=== PATIENT | male | born 1940 | race Caucasian/White ===

== ENCOUNTER 2018-12-25 13:13 | Inpatient (IN) ==
[2018-12-25 14:12] LABS: Basophils # 0.1 K/mcL (0.0-0.2); Basophils % 0.4 %; Eosinophils # 0.4 K/mcL (0.0-0.6); Eosinophils % 3.4 %; Hematocrit 24.3 % (37.5-50.1); Hemoglobin 7.6 g/dL (12.9-16.9); Immature Granulocytes % 0.4 % (0-4); Lymphocytes # 2.5 K/mcL (0.6-4.6); Lymphocytes % 19.9 %; Mean Corpuscular HGB Conc 31.3 g/dL (31.6-35.5); Mean Corpuscular Hemoglobin 29.8 pg (28.0-33.3); Mean Corpuscular Volume 95.3 fL (83.0-100.0); Mean Platelet Volume 10.9 fL (9.4-12.4); Monocytes # 0.9 K/mcL (0.0-1.3); Monocytes % 7.1 %; Neutrophils # 8.8 K/mcL (1.6-8.9); Platelet Count 180 K/mcL (140-400); Red Blood Count 2.55 M/mcL (4.19-5.50); Red Cell Distribution Width 14.8 % (11.5-14.5); Segmented Neutrophils % 68.8 %; White Blood Count 12.7 K/mcL (4.3-11.1)
[2018-12-25 14:34] LABS: Alanine Aminotransferase 11 Units/L (7-52); Albumin 3.8 g/dL (3.5-5.7); Albumin/Globulin Ratio 1.3 (1.1-2.2); Alkaline Phosphatase 62 Units/L (34-104); Aspartate Amino Transferase 15 Units/L (13-39); BUN/Creatinine Ratio 18 (6-26); Bilirubin,Total 0.7 mg/dL (0.3-1.0); Blood Urea Nitrogen 64 mg/dL (8-23); Calcium 9.3 mg/dL (8.6-10.3); Carbon Dioxide 22 mEq/L (23-29); Chloride 109 mEq/L (98-107); Globulin 2.9 g/dL (2.4-3.5); Glucose 110 mg/dL (70-105); Osmolality,Calculated 299 (280-300); Potassium 4.7 mEq/L (3.5-5.1); Sodium 135 mEq/L (136-145); Total Protein 6.7 g/dL (6.4-8.9); Troponin I < 0.03 ng/mL (< 0.04); eGFR For African Americans 20 (> 60); eGFR For Non-African Americans 16 (> 60)
[2018-12-25] MEDS ORDERED: Piperacillin/Tazobactam 3.375 GM in Water for inj. (sterile) 20 ML IVP ONE (15:00)
[2018-12-25 15:18] LABS: INR 1.1; Prothrombin Time 12.3 Seconds (9.4-12.1)
[2018-12-25 15:20] LABS: Activated Partial Thrombo Time 30.2 Seconds (26.0-36.0)
[2018-12-25] MEDS ORDERED: 0.9 % Sodium Chloride 1,000 ML IVC ONE ×2 (15:31→18:28)
[2018-12-25 15:43] LABS: Lactate Dehydrogenase 144 Units/L (140-271)
[2018-12-25] MEDS ORDERED: Naloxone 0.4 MG/ML INJ IVP PRN (16:35)
[2018-12-25] MEDS ORDERED: Ondansetron 4 MG/2 ML VIAL IVP PRN (16:35)
[2018-12-25] MEDS ORDERED: *HR* Promethazine 25 MG/ML VIAL IVP ONE (17:16)
[2018-12-25] MEDS ORDERED: cloNIDine HCl 0.1 MG TABLET PO ONE (17:21)
[2018-12-25] MEDS ORDERED: hydrALAZINE 10 MG TABLET PO ONE (17:21)
[2018-12-25] MEDS ORDERED: Dextrose Gel 15 GM/37.5 ML TUBE PO PRN ×2 (17:36)
[2018-12-25] MEDS ORDERED: D5% in Water 1,000 ML IVC PRN (17:36)
[2018-12-25] MEDS ORDERED: *HR* Dextrose 50 % in Water (Syg) 50 ML SYRINGE IVP PRN (17:36)
[2018-12-25] MEDS ORDERED: 0.9 % Sodium Chloride 1,000 ML IVC SCH (19:30)
[2018-12-25] MEDS ORDERED: *HR* Magnesium Sulfate 1 GM/2 ML VIAL ONE (19:47)
[2018-12-25] MEDS: Insulin LISPRO 300 UNITS/3 ML VIAL SQ SCH (20:02)
[2018-12-25] MEDS ORDERED: Dexamethasone 4 MG/ML VIAL ONE (20:12)
[2018-12-25] MEDS ORDERED: *HR* Rocuronium Bromide 50 MG/5 ML VIAL ONE (20:12)
[2018-12-25] MEDS ORDERED: Ondansetron 4 MG/2 ML VIAL ONE (20:12)
[2018-12-25] MEDS ORDERED: *HR* FentaNYL (PF) 100 MCG/2 ML VIAL ONE (20:12)
[2018-12-25] MEDS ORDERED: Lidocaine -MPF 2% 2 ML VIAL ONE (20:12)
[2018-12-25] MEDS ORDERED: *HR* Propofol 200 MG/20 ML VIAL IVP ONE (20:12)
[2018-12-25] MEDS ORDERED: Lidocaine HCL 4 ML Topical Solution (Laryng-O-Jet Kit Sterile Pak) TP ONE (20:17)
[2018-12-25] MEDS ORDERED: 0.9 % Sodium Chloride 250 ML ONE (20:49)
[2018-12-25] MEDS ORDERED: Furosemide 20 MG/2 ML VIAL IVP SCH (21:00)
[2018-12-25] MEDS: Piperacillin/Tazobactam 3.375 GM in 0.9 % Sodium Chloride Mini Bag 100 ML IVPB SCH (23:40)
[2018-12-26] MEDS ORDERED: *HR* Etomidate 40 MG/20 ML VIAL IVP ONE
[2018-12-26] MEDS ORDERED: *HR* HYDROMORPHONE 2 MG/ML VIAL ONE (00:07)
[2018-12-26] MEDS ORDERED: Famotidine 20 MG/2 ML VIAL ONE (00:10)
[2018-12-26] MEDS ORDERED: Acetaminophen IV 1,000 MG/100 ML INFUS..BTL ONE (00:10)
[2018-12-26] MEDS: Piperacillin/Tazobactam 3.375 GM in 0.9 % Sodium Chloride Mini Bag 100 ML IVPB SCH ×3 (00:15→21:08)
[2018-12-26] MEDS: Insulin LISPRO 300 UNITS/3 ML VIAL SQ SCH ×4 (00:15→17:31)
[2018-12-26] MEDS ORDERED: *HR* Promethazine 25 MG/ML VIAL IVP PRN (00:42)
[2018-12-26] MEDS ORDERED: *HR* HYDROmorphone (PF) 1 MG/ML SYRINGE IVP PRN (00:42)
[2018-12-26] MEDS ORDERED: *HR* Labetalol 20 MG/4 ML SYRINGE IVP PRN ×2 (00:42→01:46)
[2018-12-26] MEDS ORDERED: *HR* Magnesium Sulfate 1 GM/2 ML VIAL ONE (00:56)
[2018-12-26] MEDS ORDERED: Dextrose Gel 15 GM/37.5 ML TUBE PO PRN ×2 (01:46)
[2018-12-26] MEDS ORDERED: 0.9 % Sodium Chloride 1,000 ML IVC SCH (01:46)
[2018-12-26] MEDS ORDERED: Naloxone 0.4 MG/ML INJ IVP PRN (01:46)
[2018-12-26] MEDS ORDERED: *HR* Dextrose 50 % in Water (Syg) 50 ML SYRINGE IVP PRN (01:46)
[2018-12-26 04:11] LABS: Basophils % 0.3 %; Eosinophils # 0.1 K/mcL (0.0-0.6); Eosinophils % 1.1 %; Hematocrit 28.5 % (37.5-50.1); Hemoglobin 8.9 g/dL (12.9-16.9); Immature Granulocytes % 0.3 % (0-4); Lymphocytes # 0.9 K/mcL (0.6-4.6); Lymphocytes % 9.1 %; Mean Corpuscular HGB Conc 31.2 g/dL (31.6-35.5); Mean Corpuscular Hemoglobin 30.3 pg (28.0-33.3); Mean Corpuscular Volume 96.9 fL (83.0-100.0); Mean Platelet Volume 10.6 fL (9.4-12.4); Monocytes # 0.6 K/mcL (0.0-1.3); Monocytes % 6.2 %; Neutrophils # 8.2 K/mcL (1.6-8.9); Platelet Count 154 K/mcL (140-400); Red Blood Count 2.94 M/mcL (4.19-5.50); White Blood Count 9.9 K/mcL (4.3-11.1)
[2018-12-26 04:31] LABS: Calcium 8.9 mg/dL (8.6-10.3); Potassium 4.6 mEq/L (3.5-5.1)
[2018-12-26] MEDS: *HR* Heparin 5,000 UNIT/ML VIAL SQ SCH ×2 (06:41→17:31)
[2018-12-26] MEDS: Acetaminophen IV 1,000 MG/100 ML INFUS..BTL IVPB SCH ×3 (06:41→17:30)
[2018-12-26] MEDS: Pantoprazole 40 MG VIAL IVP SCH ×2 (06:42→17:30)
[2018-12-26] MEDS: Furosemide 20 MG/2 ML VIAL IVP SCH ×2 (09:24→16:25)
[2018-12-26] MEDS: *HR* FentaNYL (PF) 100 MCG/2 ML VIAL IVP PRN ×2 (11:16→15:49)
[2018-12-26] MEDS: 0.9 % Sodium Chloride 1,000 ML IVC SCH (12:50)
[2018-12-26] MEDS ORDERED: *HR* Metoprolol 5 MG/5 ML VIAL IVP ONE (16:08)
[2018-12-26] MEDS: *HR* Metoprolol 5 MG/5 ML VIAL IVP SCH (18:16)
[2018-12-26] MEDS ORDERED: NIFEdipine 10 MG CAPSULE PO ONE (22:09)
[2018-12-27] MEDS: Acetaminophen IV 1,000 MG/100 ML INFUS..BTL IVPB SCH ×4 (00:21→17:40)
[2018-12-27] MEDS: *HR* Metoprolol 5 MG/5 ML VIAL IVP SCH ×4 (00:22→17:40)
[2018-12-27] MEDS: Insulin LISPRO 300 UNITS/3 ML VIAL SQ SCH ×4 (00:24→17:24)
[2018-12-27] MEDS: 0.9 % Sodium Chloride 1,000 ML IVC SCH (03:26)
[2018-12-27] MEDS: Pantoprazole 40 MG VIAL IVP SCH ×2 (05:24→17:45)
[2018-12-27 06:45] LABS: Basophils # 0.1 K/mcL (0.0-0.2); Basophils % 0.6 %; Eosinophils # 0.3 K/mcL (0.0-0.6); Eosinophils % 2.9 %; Hematocrit 30.3 % (37.5-50.1); Hemoglobin 9.4 g/dL (12.9-16.9); Immature Granulocytes % 0.3 % (0-4); Lymphocytes # 2.1 K/mcL (0.6-4.6); Lymphocytes % 19.5 %; Mean Corpuscular Hemoglobin 29.8 pg (28.0-33.3); Mean Corpuscular Volume 96.2 fL (83.0-100.0); Mean Platelet Volume 10.6 fL (9.4-12.4); Monocytes # 0.9 K/mcL (0.0-1.3); Monocytes % 8.4 %; Neutrophils # 7.2 K/mcL (1.6-8.9); Platelet Count 213 K/mcL (140-400); Red Blood Count 3.15 M/mcL (4.19-5.50); Red Cell Distribution Width 15.2 % (11.5-14.5); Segmented Neutrophils % 68.3 %; White Blood Count 10.6 K/mcL (4.3-11.1)
[2018-12-27] MEDS: *HR* Heparin 5,000 UNIT/ML VIAL SQ SCH ×2 (06:58→17:45)
[2018-12-27 07:06] LABS: Calcium 9.4 mg/dL (8.6-10.3); Potassium 4.3 mEq/L (3.5-5.1)
[2018-12-27 07:39] LABS: ABG Base Excess -4 mEq/L (-2 to 3); ABG HCO3 22 mEq/L (21-27); ABG Oxygen Saturation 93 % (95-98); ABG PCO2 42 mmHg (35-45); ABG PH 7.33 pH Units (7.32-7.45); ABG PO2 72 mmHg (85-104); ABG TCO2 23 mEq/L (20-26)
[2018-12-27] MEDS: Furosemide 20 MG/2 ML VIAL IVP SCH ×2 (07:58→17:18)
[2018-12-27] MEDS: Piperacillin/Tazobactam 3.375 GM in 0.9 % Sodium Chloride Mini Bag 100 ML IVPB SCH ×2 (08:02→20:36)
[2018-12-27] MEDS: amLODIPine 5 MG TABLET PO SCH (08:35)
[2018-12-27] MEDS: cloNIDine HCl 0.1 MG TABLET PO SCH ×3 (08:35→20:40)
[2018-12-27] MEDS ORDERED: Haloperidol Lactate 5 MG/ML VIAL IVP PRN (12:21)
[2018-12-27 13:34] LABS: Bilirubin,Urine Negative (Negative); Blood,Urine Negative (Negative); Clarity,Urine Clear (Clear); Color,Urine Yellow (Yellow); Glucose,Urine (UA) Normal (Normal); Ketones,Urine Negative (Negative); Leukocyte Esterase,Urine Negative (Negative); Nitrite,Urine Negative (Negative); Protein,Urine 30 mg/dL (Neg-Trace); Specific Gravity,Urine 1.017 (1.010-1.025); Urobilinogen,Urine Normal (Normal)
[2018-12-27 13:36] LABS: Hyaline Casts,Urine None Seen per lpf (None-Few); WBC,Urine 0-3 per hpf (0-3)
[2018-12-27 14:00] LABS: Squamous Epithelial Cell,Urine Few per lpf (None-Few)
[2018-12-27 14:02] LABS: Bacteria,Urine Few per hpf (None-Few); RBC,Urine 0-3 per hpf (0-3)
[2018-12-28] MEDS: Insulin LISPRO 300 UNITS/3 ML VIAL SQ SCH ×4 (00:02→17:50)
[2018-12-28] MEDS: *HR* Metoprolol 5 MG/5 ML VIAL IVP SCH ×2 (00:04→07:33)
[2018-12-28 01:13] LABS: Basophils # 0.1 K/mcL (0.0-0.2); Basophils % 0.6 %; Eosinophils # 0.4 K/mcL (0.0-0.6); Eosinophils % 5.1 %; Hematocrit 27.8 % (37.5-50.1); Hemoglobin 8.6 g/dL (12.9-16.9); Immature Granulocytes % 0.5 % (0-4); Lymphocytes # 2.1 K/mcL (0.6-4.6); Lymphocytes % 25.3 %; Mean Corpuscular HGB Conc 30.9 g/dL (31.6-35.5); Mean Corpuscular Hemoglobin 30.3 pg (28.0-33.3); Mean Corpuscular Volume 97.9 fL (83.0-100.0); Mean Platelet Volume 10.5 fL (9.4-12.4); Monocytes # 0.8 K/mcL (0.0-1.3); Monocytes % 9.1 %; Platelet Count 191 K/mcL (140-400); Red Blood Count 2.84 M/mcL (4.19-5.50); Red Cell Distribution Width 14.9 % (11.5-14.5); Segmented Neutrophils % 59.4 %; White Blood Count 8.4 K/mcL (4.3-11.1)
[2018-12-28 01:31] LABS: Potassium 4.2 mEq/L (3.5-5.1)
[2018-12-28] MEDS: Acetaminophen IV 1,000 MG/100 ML INFUS..BTL IVPB SCH ×3 (01:59→11:54)
[2018-12-28] MEDS: 0.9 % Sodium Chloride 1,000 ML IVC SCH ×2 (02:06→17:07)
[2018-12-28] MEDS: *HR* Heparin 5,000 UNIT/ML VIAL SQ SCH ×2 (07:32→17:50)
[2018-12-28] MEDS: Pantoprazole 40 MG VIAL IVP SCH ×2 (07:34→17:50)
[2018-12-28] MEDS: amLODIPine 5 MG TABLET PO SCH (07:35)
[2018-12-28] MEDS: Furosemide 20 MG/2 ML VIAL IVP SCH (07:35)
[2018-12-28] MEDS: cloNIDine HCl 0.1 MG TABLET PO SCH ×3 (07:35→21:14)
[2018-12-28] MEDS: Piperacillin/Tazobactam 3.375 GM in 0.9 % Sodium Chloride Mini Bag 100 ML IVPB SCH ×2 (07:37→21:20)
[2018-12-28] MEDS: hydrALAZINE 25 MG TABLET PO SCH ×3 (09:05→21:14)
[2018-12-28] MEDS: Ondansetron 4 MG/2 ML VIAL IVP PRN ×2 (09:58→15:59)
[2018-12-29] MEDS: Insulin LISPRO 300 UNITS/3 ML VIAL SQ SCH ×5 (00:04→20:37)
[2018-12-29] MEDS: Pantoprazole 40 MG VIAL IVP SCH (05:15)
[2018-12-29] MEDS: *HR* Heparin 5,000 UNIT/ML VIAL SQ SCH ×2 (05:15→17:22)
[2018-12-29] MEDS ORDERED: D5% in Water 1,000 ML IVC PRN (06:45)
[2018-12-29] MEDS: amLODIPine 5 MG TABLET PO SCH (08:12)
[2018-12-29] MEDS: hydrALAZINE 25 MG TABLET PO SCH ×3 (08:14→20:35)
[2018-12-29] MEDS: cloNIDine HCl 0.1 MG TABLET PO SCH ×3 (08:15→20:35)
[2018-12-29] MEDS: Piperacillin/Tazobactam 3.375 GM in 0.9 % Sodium Chloride Mini Bag 100 ML IVPB SCH ×2 (09:58→20:39)
[2018-12-29] MEDS: 0.9 % Sodium Chloride 1,000 ML IVC SCH (23:31)
[2018-12-30 04:40] LABS: Calcium 8.5 mg/dL (8.6-10.3); Magnesium 2.3 mg/dL (1.6-2.6); Phosphorous 4.5 mg/dL (2.7-4.5); Potassium 3.9 mEq/L (3.5-5.1)
[2018-12-30] MEDS: *HR* Heparin 5,000 UNIT/ML VIAL SQ SCH ×2 (05:53→17:32)
[2018-12-30] MEDS: Insulin LISPRO 300 UNITS/3 ML VIAL SQ SCH ×4 (08:22→21:18)
[2018-12-30] MEDS: hydrALAZINE 25 MG TABLET PO SCH ×3 (09:49→21:18)
[2018-12-30] MEDS: cloNIDine HCl 0.1 MG TABLET PO SCH ×3 (09:51→21:17)
[2018-12-30] MEDS: Piperacillin/Tazobactam 3.375 GM in 0.9 % Sodium Chloride Mini Bag 100 ML IVPB SCH (09:51)
[2018-12-30] MEDS: amLODIPine 5 MG TABLET PO SCH (09:51)
[2018-12-30] MEDS ORDERED: Ringers Solution, Lactated 500 ML IVC ONE (10:18)
[2018-12-30] MEDS ORDERED: Ringers Solution, Lactated 1,000 ML IVC SCH ×2 (10:30→12:00)
[2018-12-30 18:22] LABS: Calcium 8.3 mg/dL (8.6-10.3); Potassium 3.9 mEq/L (3.5-5.1)
[2018-12-31 03:23] LABS: Calcium 8.5 mg/dL (8.6-10.3); Potassium 4.4 mEq/L (3.5-5.1)
[2018-12-31] MEDS: *HR* Heparin 5,000 UNIT/ML VIAL SQ SCH ×2 (05:57→17:18)
[2018-12-31] MEDS: Insulin LISPRO 300 UNITS/3 ML VIAL SQ SCH ×4 (10:04→20:32)
[2018-12-31] MEDS: amLODIPine 5 MG TABLET PO SCH (10:09)
[2018-12-31] MEDS: hydrALAZINE 25 MG TABLET PO SCH ×3 (10:09→20:31)
[2018-12-31] MEDS: cloNIDine HCl 0.1 MG TABLET PO SCH ×3 (10:09→20:32)
[2019-01-01] MEDS: *HR* Heparin 5,000 UNIT/ML VIAL SQ SCH (06:10)
[2019-01-01] MEDS: amLODIPine 5 MG TABLET PO SCH (09:02)
[2019-01-01] MEDS: Insulin LISPRO 300 UNITS/3 ML VIAL SQ SCH ×2 (09:02→13:17)
[2019-01-01] MEDS: cloNIDine HCl 0.1 MG TABLET PO SCH (09:02)
[2019-01-01] MEDS: hydrALAZINE 25 MG TABLET PO SCH (09:08)
[2019-01-01 10:54] VITALS: BP 140/66
== END 2019-01-01 15:35 | disposition home health service (06) | DRG 329 ==
LOC: EMEROOARM 13:13 → 3ANU 18:07 → SUATTDRO 18:07 → 3ANU 18:24
PROVIDERS: ADMIT Pharmacist; ATTEND Internal Medicine

== ENCOUNTER 2019-03-17 08:58 | Observation (INO) ==
[2019-03-17 02:27] LABS: Basophils % 0.5 %; Eosinophils # 0.2 K/mcL (0.0-0.6); Hematocrit 23.4 % (37.5-50.1); Hemoglobin 7.6 g/dL (12.9-16.9); Immature Granulocytes % 0.7 % (0-4); Lymphocytes # 1.9 K/mcL (0.6-4.6); Lymphocytes % 26.6 %; Mean Corpuscular HGB Conc 32.5 g/dL (31.6-35.5); Mean Corpuscular Volume 92.5 fL (83.0-100.0); Mean Platelet Volume 10.6 fL (9.4-12.4); Monocytes # 0.7 K/mcL (0.0-1.3); Monocytes % 9.7 %; Neutrophils # 4.3 K/mcL (1.6-8.9); Platelet Count 238 K/mcL (140-400); Red Blood Count 2.53 M/mcL (4.19-5.50); Red Cell Distribution Width 14.6 % (11.5-14.5); Segmented Neutrophils % 59.5 %; White Blood Count 7.3 K/mcL (4.3-11.1)
[2019-03-17 02:28] LABS: INR 1.2; Prothrombin Time 13.1 Seconds (9.4-12.1)
[2019-03-17 02:30] LABS: Activated Partial Thrombo Time 31.3 Seconds (26.0-36.0)
[2019-03-17 02:37] LABS: Bilirubin,Urine Negative (Negative); Blood,Urine Negative (Negative); Clarity,Urine Clear (Clear); Color,Urine Yellow (Yellow); Glucose,Urine (UA) Normal (Normal); Ketones,Urine Negative (Negative); Leukocyte Esterase,Urine Negative (Negative); Nitrite,Urine Negative (Negative); PH,Urine 5.5 pH Units (5.0-8.0); Protein,Urine 100 mg/dL (Neg-Trace); Specific Gravity,Urine 1.014 (1.010-1.025); Urobilinogen,Urine Normal (Normal)
[2019-03-17 02:41] LABS: Bacteria,Urine None Seen per hpf (None-Few); Hyaline Casts,Urine None Seen per lpf (None-Few); Squamous Epithelial Cell,Urine Few per lpf (None-Few); WBC,Urine 0-3 per hpf (0-3)
[2019-03-17 02:43] LABS: Albumin 3.3 g/dL (3.5-5.7); Albumin/Globulin Ratio 1.1 (1.1-2.2); Bilirubin,Direct 0.2 mg/dL (0.0-0.2); Bilirubin,Indirect 0.5 mg/dL (0.0-1.0); Bilirubin,Total 0.7 mg/dL (0.3-1.0); Globulin 2.9 g/dL (2.4-3.5); Total Protein 6.2 g/dL (6.4-8.9)
[2019-03-17 02:47] LABS: Albumin 3.3 g/dL (3.5-5.7); Albumin/Globulin Ratio 1.1 (1.1-2.2); Bilirubin,Total 0.7 mg/dL (0.3-1.0); Globulin 2.9 g/dL (2.4-3.5); Magnesium 1.7 mg/dL (1.6-2.6); Potassium 3.9 mEq/L (3.5-5.1); Total Protein 6.2 g/dL (6.4-8.9); Troponin I 0.04 ng/mL (< 0.04)
[~2019-03-17 08:58] MED LIST: Acetaminophen 325 MG TABLET PO ONE; Furosemide 40 MG/4 ML VIAL IVP ONE; Ipratropium/Albuterol Neb 3 ML IH PRN; Naloxone 0.4 MG/ML INJ IVP PRN; Ondansetron ODT 4 MG TAB.RAPDIS SL PRN
[2019-03-17] MEDS: hydrALAZINE 25 MG TABLET PO SCH ×4 (09:24→20:18)
[2019-03-17] MEDS: carvediloL 25 MG TABLET PO SCH ×2 (09:24→15:14)
[2019-03-17] MEDS: cloNIDine HCl 0.1 MG TABLET PO SCH ×3 (09:25→20:18)
[2019-03-17] MEDS: amLODIPine 5 MG TABLET PO SCH (09:25)
[2019-03-17] MEDS: Aspirin Enteric Coated 81 MG Tablet PO SCH (09:25)
[2019-03-17] MEDS: Furosemide 40 MG/4 ML VIAL IVP SCH (15:29)
[2019-03-17 20:44] LABS: % Iron Saturation 15 % (20-55); Iron 26 mcg/dL (65-175); Transferrin 121 mg/dL (203-362)
[2019-03-17 21:00] LABS: Ferritin 887 ng/mL (20-250)
[2019-03-17 21:08] LABS: Folate > 22.3 ng/mL (3.0-16.0); Vitamin B12 621 pg/mL (250-1100)
[2019-03-18 05:46] LABS: Basophils % 0.6 %; Eosinophils # 0.3 K/mcL (0.0-0.6); Eosinophils % 4.8 %; Hematocrit 25.7 % (37.5-50.1); Hemoglobin 8.4 g/dL (12.9-16.9); Immature Granulocytes % 0.6 % (0-4); Lymphocytes # 1.9 K/mcL (0.6-4.6); Lymphocytes % 28.3 %; Mean Corpuscular HGB Conc 32.7 g/dL (31.6-35.5); Mean Corpuscular Hemoglobin 29.8 pg (28.0-33.3); Mean Corpuscular Volume 91.1 fL (83.0-100.0); Mean Platelet Volume 10.1 fL (9.4-12.4); Monocytes # 0.5 K/mcL (0.0-1.3); Monocytes % 7.6 %; Neutrophils # 3.8 K/mcL (1.6-8.9); Platelet Count 274 K/mcL (140-400); Red Blood Count 2.82 M/mcL (4.19-5.50); Red Cell Distribution Width 14.4 % (11.5-14.5); Segmented Neutrophils % 58.1 %; White Blood Count 6.6 K/mcL (4.3-11.1)
[2019-03-18 06:05] LABS: Calcium 9.2 mg/dL (8.6-10.3); Phosphorous 4.1 mg/dL (2.7-4.5); Potassium 3.7 mEq/L (3.5-5.1)
[2019-03-18] MEDS: amLODIPine 5 MG TABLET PO SCH (08:02)
[2019-03-18] MEDS: hydrALAZINE 25 MG TABLET PO SCH ×3 (08:02→20:20)
[2019-03-18] MEDS: Furosemide 40 MG/4 ML VIAL IVP SCH (08:03)
[2019-03-18] MEDS: Aspirin Enteric Coated 81 MG Tablet PO SCH (08:03)
[2019-03-18] MEDS: carvediloL 25 MG TABLET PO SCH ×2 (08:03→16:40)
[2019-03-18] MEDS: cloNIDine HCl 0.1 MG TABLET PO SCH ×3 (08:03→20:20)
[2019-03-18] MEDS ORDERED: Ferumoxytol 510 MG in 0.9 % Sodium Chloride 100 ML IVPB ONE (10:03)
[2019-03-18] MEDS: *HR* Heparin 5,000 UNIT/ML VIAL SQ SCH (17:56)
[2019-03-18] MEDS ORDERED: ALPRAZolam 0.5 MG TABLET PO ONE (20:52)
[2019-03-19 02:55] LABS: Calcium 8.8 mg/dL (8.6-10.3); Magnesium 1.9 mg/dL (1.6-2.6); Potassium 3.7 mEq/L (3.5-5.1)
[2019-03-19] MEDS: *HR* Heparin 5,000 UNIT/ML VIAL SQ SCH (05:31)
[2019-03-19 07:37] VITALS: BP 167/63
[2019-03-19] MEDS: carvediloL 25 MG TABLET PO SCH (07:54)
[2019-03-19] MEDS: hydrALAZINE 25 MG TABLET PO SCH ×2 (07:55→14:14)
[2019-03-19] MEDS: cloNIDine HCl 0.1 MG TABLET PO SCH ×2 (07:55→14:14)
[2019-03-19] MEDS: Aspirin Enteric Coated 81 MG Tablet PO SCH (07:55)
[2019-03-19] MEDS: amLODIPine 5 MG TABLET PO SCH (07:56)
[2019-03-19] MEDS ORDERED: carvediloL 25 MG TABLET PO ONE (09:29)
[2019-03-19] MEDS ORDERED: carvediloL 25 MG TABLET PO SCH (17:00)
== END 2019-03-19 14:20 | disposition home health service (06) ==
LOC: 3ANU
PROVIDERS: ADMIT Internal Medicine; ATTEND Internal Medicine